=== PATIENT | male | born 1955 | race Two or more races ===

== ENCOUNTER 2018-10-02 10:37 | Emergency (ER) | payer OTHER ==
[~2018-10-02] VITALS: Ht 177.8 cm; Wt 113.0 kg
[2018-10-02] MEDS ORDERED: ONDANSETRON HCL/PF 4 MG/2 ML VIAL IVP ONE (11:00)
--- NOTE | 2018-10-02 11:03 | NUR ---
BIB FROM HOME, C/O DIZZINESS, +N/V, HEADACHE, SOB SINCE 4AM PT ALERT WITH ORIENTATION X 44 NO NOTED DEFICITS PIV PLACED LABS DRAWN WILL CONTINUE TO MONITOR.
[2018-10-02 11:09] LABS: BASOPHILS % (AUTO) 0.7 % (0.0-2.0); EOSINOPHILS % (AUTO) 1.2 % (0.0-6.0); HEMATOCRIT 42 % (39-51); HEMOGLOBIN 14.3 g/dL (13.5-17.5); LYMPHOCYTES # (AUTO) 1.4 /CMM (0.8-4.8); MEAN CORPUSCULAR HGB CONC 34 g/dl (31.0-36.0); MEAN CORPUSCULAR VOLUME 87 fL (80-96); MONOCYTES # (AUTO) 0.5 /CMM (0.1-1.30); MONOCYTES % (AUTO) 7.6 % (2.0-12.0); NEUTROPHILS % (AUTO) 70.5 % (43.0-81.0); PLATELET COUNT (AUTO) 251 /CMM (150-450); RED BLOOD CELL COUNT(AUTO) 4.87 MIL/uL (4.5-6.0); WHITE BLOOD COUNT (AUTO) 7.1 K/uL (4.3-11.0)
[2018-10-02 11:21] LABS: CALCIUM, SERUM 9.1 mg/dL (8.5-10.1); CARBON DIOXIDE 30 mmol/L (21-32); CHLORIDE 103 mmol/L (98-107); GLUCOSE 168 mg/dL (74-106); POTASSIUM 4.1 mmol/L (3.5-5.1); SODIUM SERUM 140 mmol/L (136-145); UREA NITROGEN, BLOOD 18 mg/dL (7-18)
[2018-10-02] MEDS ORDERED: ONDANSETRON HCL/PF 4 MG/2 ML VIAL ONE (11:27)
[2018-10-02] MEDS ORDERED: MECLIZINE HCL 25 MG TABLET ONE (11:27)
[2018-10-02] MEDS ORDERED: IV NS 0.9% 1,000 ML BAG IV ONE (11:30)
[2018-10-02] MEDS ORDERED: MECLIZINE HCL 12.5 MG TABLET PO ONE (11:30)
[2018-10-02 11:34] LABS: ALANINE AMINOTRANSFERASE 37 U/L (12-78); ALBUMIN 3.8 g/dL (3.4-5.0); ALKALINE PHOSPHATASE 79 U/L (46-116); ASPARTATE AMINOTRANSFERASE 15 U/L (15-37); B-TYPE NATRIURETIC PEPTIDE 33 PG/ML (0-125); BILIRUBIN,DIRECT 0.1 mg/dL (0.0-0.2); BILIRUBIN,TOTAL 0.7 mg/dL (0.2-1.0); TOTAL PROTEIN, SERUM 7.1 g/dL (6.4-8.2)
--- NOTE | 2018-10-02 11:42 | NUR ---
PT TAKEN TO CT [facility]
[2018-10-02 12:35] VITALS: BP 142/86
== END 2018-10-02 12:19 | disposition home or self-care (01) ==
LOC: ER 10:43
DX: R42 Dizziness and giddiness (principal); E66.9 Obesity, unspecified; I10 Essential (primary) hypertension; E78.5 Hyperlipidemia, unspecified; N40.0 Benign prostatic hyperplasia without lower urinary tract symptoms; E11.9 Type 2 diabetes mellitus without complications; W18.39XA Other fall on same level, initial encounter; Y93.89 Activity, other specified; Y92.009 Unspecified place in unspecified non-institutional (private) residence as the place of occurrence of the external cause; Y99.8 Other external cause status
CPT/HCPCS: 36415; 70450-TC; 71045-TC; 80048-TC; 80076-TC; 83880; 84484-TC; 85025-TC; 85730-TC; 87400; J2405; J7030; J8597

== ENCOUNTER 2019-02-06 02:29 | Emergency (ER) | payer OTHER ==
[~2019-02-06] VITALS: Ht 170.2 cm; Wt 117.9 kg
[2019-02-06 02:34] VITALS: BP 128/83
--- NOTE | 2019-02-06 02:44 | NUR ---
BIBSELF FROM HOME. AAOX4. NAD NOTED. BREATHING EVEN AND UNLABORED. AMBULATORY. C/O R SHOULDER PAIN X 2WEEK PROGRESSIVELY GETTING WORST TODAY. DESCRAIBE PAIN SHARP CONSTANT 04/05. DENIES TRAUMA. NOTED LIMITED ROM WITH PAIN WHEN MOVING. TO ER BED 11. AWAITING MD FOR EVAL.
[2019-02-06] MEDS ORDERED: TRAMADOL HCL 50 MG TABLET PO STA (03:04)
[2019-02-06] MEDS ORDERED: TRAMADOL HCL 50 MG TABLET ONE (03:09)
[2019-02-06] MEDS ORDERED: KETOROLAC TROMETHAMINE INJ 30 MG/ML VIAL IV STA (04:23)
[2019-02-06] MEDS ORDERED: KETOROLAC TROMETHAMINE INJ 60 MG/2 ML VIAL IM ONE (04:29)
--- NOTE | 2019-02-06 04:52 | NUR ---
Patient discharged to home in stable condition. Written and verbal after care instructions given. Patient verbalizes understanding of instruction.Pt ambulatory with a steady gait
== END 2019-02-06 04:53 | disposition home or self-care (01) ==
LOC: ER 02:34
DX: M25.511 Pain in right shoulder (principal); I10 Essential (primary) hypertension; E78.5 Hyperlipidemia, unspecified; N40.0 Benign prostatic hyperplasia without lower urinary tract symptoms; E11.9 Type 2 diabetes mellitus without complications
CPT/HCPCS: 73030; 96374; 99283; J1885

== ENCOUNTER 2023-05-10 23:42 | Inpatient (IN) | payer MEDICARE, OTHER ==
[~2023-05-10] VITALS: Ht 170.2 cm; Wt 105.7 kg
[2023-05-10] MEDS ORDERED: ONDANSETRON HCL/PF 4 MG/2 ML VIAL ONE (23:49)
[2023-05-11] MEDS ORDERED: ONDANSETRON HCL/PF - ER 4 MG/2 ML VIAL IV ONE
[2023-05-11] MEDS ORDERED: ONDANSETRON HCL/PF 4 MG/2 ML VIAL IV ONE
[2023-05-11] MEDS ORDERED: IV NS 0.9% 1,000 ML BAG IV ONE
[2023-05-11 00:35] LABS: BASOPHILS # (AUTO) 0.1 K/uL (0.0-0.2); BASOPHILS % (AUTO) 0.7 % (0.0-2.0); CALCIUM, SERUM 9.1 mg/dL (8.5-10.1); CARBON DIOXIDE 25 mmol/L (21-32); CHLORIDE 101 mmol/L (98-107); EOSINOPHILS # (AUTO) 0.4 K/uL (0.0-0.7); EOSINOPHILS % (AUTO) 4.4 % (0.0-6.0); GLUCOSE 186 mg/dL (74-106); HEMATOCRIT 34 % (39-51); HEMOGLOBIN 11.1 g/dL (13.5-17.5); LYMPHOCYTES # (AUTO) 0.4 K/uL (0.8-4.8); LYMPHOCYTES % (AUTO) 4.8 % (20.0-44.0); MEAN CORPUSCULAR HEMOGLOBIN 26 PG (26.0-33.0); MEAN CORPUSCULAR HGB CONC 33 g/dl (31.0-36.0); MEAN CORPUSCULAR VOLUME 79 fL (80-96); MONOCYTES # (AUTO) 0.8 K/uL (0.1-1.30); MONOCYTES % (AUTO) 9.3 % (2.0-12.0); NEUTROPHILS # (AUTO) 6.6 K/uL (1.8-8.9); NEUTROPHILS % (AUTO) 80.8 % (43.0-81.0); PLATELET COUNT (AUTO) 168 K/uL (150-450); POTASSIUM 4.3 mmol/L (3.5-5.1); RED BLOOD CELL COUNT(AUTO) 4.28 MIL/uL (4.5-6.0); SODIUM SERUM 137 mmol/L (136-145); UREA NITROGEN, BLOOD 16 mg/dL (7-18); WHITE BLOOD COUNT (AUTO) 8.1 K/uL (4.3-11.0)
[2023-05-11 00:40] LABS: ALANINE AMINOTRANSFERASE 41 U/L (12-78); ALBUMIN 3.3 g/dL (3.4-5.0); ALKALINE PHOSPHATASE 61 U/L (46-116); ASPARTATE AMINOTRANSFERASE 25 U/L (15-37); BILIRUBIN,DIRECT 0.2 mg/dL (0.0-0.2); BILIRUBIN,TOTAL 0.7 mg/dL (0.2-1.0); TOTAL PROTEIN, SERUM 7.1 g/dL (6.4-8.2)
[2023-05-11] MEDS ORDERED: MECL-159 PO (00:42)
[2023-05-11] MEDS ORDERED: FINA5TAB3 PO (00:42)
[2023-05-11] MEDS ORDERED: DIPH50CA4 PO (00:42)
[2023-05-11] MEDS ORDERED: BECL10.6 INH (00:42)
[2023-05-11] MEDS ORDERED: METF-440 PO (00:42)
[2023-05-11] MEDS ORDERED: TAMS-12 PO (00:42)
[2023-05-11] MEDS ORDERED: FEXO-65 PO (00:42)
[2023-05-11] MEDS ORDERED: DAPA10TA PO (00:42)
[2023-05-11] MEDS ORDERED: ASPI-1420 PO (00:42)
[2023-05-11] MEDS ORDERED: CARV12.52 PO (00:42)
[2023-05-11] MEDS ORDERED: BACL10TA PO (00:42)
[2023-05-11] MEDS ORDERED: METO-357 PO (00:42)
[2023-05-11] MEDS ORDERED: VIBEGRON PO (00:42)
[2023-05-11] MEDS ORDERED: ONDA4TAB5 PO (00:42)
[2023-05-11] MEDS ORDERED: DICL75TA5 PO (00:42)
[2023-05-11] MEDS ORDERED: ROSU20TA2 PO (00:42)
[2023-05-11] MEDS ORDERED: GLYB5TAB7 PO (00:42)
[2023-05-11] MEDS ORDERED: LORA-258 PO (00:42)
[2023-05-11] MEDS ORDERED: INSU100I26 SQ (00:42)
[2023-05-11 00:43] LABS: LACTIC ACID 1.5 mmol/L (0.4-2.0)
[2023-05-11 00:54] LABS: INR 0.98 (0.91-1.10); PARTIAL THROMBOPLASTIN TIME 34.3 SEC (24.3-34.3); PROTHROMBIN TIME 10.4 SECS (9.2-11.1)
[2023-05-11] MEDS ORDERED: METOCLOPRAMIDE HCL 10 MG/2 ML VIAL ONE (01:28)
[2023-05-11] MEDS ORDERED: METOCLOPRAMIDE HCL 10 MG/2 ML VIAL IV ONE (01:30)
[2023-05-11 01:51] LABS: APPEARANCE,URINE CLEAR (CLEAR); BILIRUBIN,URINE NEGATIVE (NEGATIVE); BLOOD, URINE NEGATIVE Ery/uL (NEGATIVE); COLOR,URINE YELLOW (YELLOW); KETONES,URINE NEGATIVE (NEGATIVE); LEUKOCYTE ESTERASE ,URINE NEGATIVE (NEGATIVE); NITRITE, URINE NEGATIVE (NEGATIVE); PROTEIN,URINE TRACE mg/dl (NEGATIVE); UGLUCOSE 3+ mg/dL (NEGATIVE)
[2023-05-11] MEDS ORDERED: FUROSEMIDE 40 MG/4 ML VIAL IV ONE (02:00)
[2023-05-11] MEDS ORDERED: FAMOTIDINE/PF INJ 20 MG/2 ML VIAL IV ONE ×2 (02:00)
[2023-05-11 02:03] LABS: ADD URINE CULTURE NO; BACTERIA,URINE None seen /HPF (None Seen); MUCUS,URINE Few /LPF (None Seen); RBC,URINE NONE SEEN /HPF (0-2); SQUAMOUS EPITHELIAL CELL,UR None Seen /HPF (None Seen); WBC,URINE NONE SEEN /HPF (0-3)
[2023-05-11] MEDS ORDERED: MAGNESIUM HYDROXIDE 30 ML UDC PO PRN (03:00)
[2023-05-11] MEDS ORDERED: MAG HYDROX/AL HYDROX/SIMETH 30 ML UDC PO PRN (03:00)
[2023-05-11] MEDS ORDERED: ONDANSETRON HCL/PF 4 MG/2 ML VIAL IVP PRN (03:00)
[2023-05-11] MEDS ORDERED: Z GUARD REMEDY 4 OZ OINT TP PRN (03:00)
[2023-05-11] MEDS ORDERED: DEXTROSE 50%-WATER 50 ML DISP.SYRIN IV PRN (03:00)
[2023-05-11] MEDS ORDERED: ZOLPIDEM TARTRATE 5 MG TABLET PO PRN (03:00)
[2023-05-11 05:14] LABS: BASOPHILS % (AUTO) 0.4 % (0.0-2.0); EOSINOPHILS # (AUTO) 0.1 K/uL (0.0-0.7); EOSINOPHILS % (AUTO) 0.9 % (0.0-6.0); HEMATOCRIT 34 % (39-51); HEMOGLOBIN 11.4 g/dL (13.5-17.5); LYMPHOCYTES # (AUTO) 0.2 K/uL (0.8-4.8); LYMPHOCYTES % (AUTO) 3.2 % (20.0-44.0); MEAN CORPUSCULAR HEMOGLOBIN 26 PG (26.0-33.0); MEAN CORPUSCULAR HGB CONC 33 g/dl (31.0-36.0); MEAN CORPUSCULAR VOLUME 78 fL (80-96); MONOCYTES # (AUTO) 0.4 K/uL (0.1-1.30); MONOCYTES % (AUTO) 6.4 % (2.0-12.0); NEUTROPHILS # (AUTO) 5.8 K/uL (1.8-8.9); NEUTROPHILS % (AUTO) 89.1 % (43.0-81.0); PLATELET COUNT (AUTO) 156 K/uL (150-450); RED BLOOD CELL COUNT(AUTO) 4.38 MIL/uL (4.5-6.0); RED CELL DISTRIBUTION WIDTH 17.8 % (11.5-15.0); WHITE BLOOD COUNT (AUTO) 6.5 K/uL (4.3-11.0)
[2023-05-11 05:26] LABS: CALCIUM, SERUM 9.3 mg/dL (8.5-10.1); POTASSIUM 4.5 mmol/L (3.5-5.1)
[2023-05-11 05:40] LABS: MAGNESIUM 1.9 mg/dL (1.8-2.4)
[2023-05-11] MEDS ORDERED: GLYB1TAB41 PO (07:59)
[2023-05-11] MEDS ORDERED: PANT40TA2 PO (07:59)
[2023-05-11] MEDS ORDERED: IBUP-1957 PO (07:59)
[2023-05-11] MEDS: BLOOD SUGAR DIAGNOSTIC 1 EACH STRIP IN SCH ×4 (08:36→21:50)
[2023-05-11] MEDS: FUROSEMIDE 40 MG/4 ML VIAL IV SCH ×2 (08:56→20:40)
[2023-05-11] MEDS: ENOXAPARIN SODIUM 40 MG/0.4 ML DISP.SYRIN SQ SCH (08:57)
[2023-05-11] MEDS ORDERED: PANTOPRAZOLE 40 MG VIAL IV SCH (09:00)
[2023-05-11] MEDS ORDERED: VIBEGRON XX SCH (10:00)
[2023-05-11] MEDS ORDERED: BACLOFEN (10 MG) 10 MG TABLET PO SCH (10:00)
[2023-05-11] MEDS: PANTOPRAZOLE 40 MG TABLET.DR PO SCH (10:00)
[2023-05-11] MEDS ORDERED: MECLIZINE HCL 12.5 MG TABLET PO PRN (11:30)
[2023-05-11 12:00] VITALS: BP 142/81; TEMP 98.2; O2SAT 99
[2023-05-11] MEDS: CEFTRIAXONE 1 G in IV D5W 50 ML IV SCH (12:13)
[2023-05-11] MEDS: INSULIN REGULAR, HUMAN 100 UNIT/ML 3 ML VIAL SQ PRN ×3 (14:45→21:52)
[2023-05-11] MEDS: MECLIZINE HCL 25 MG TABLET PO PRN (15:32)
[2023-05-11 16:00] VITALS: BP 143/75; TEMP 98.6; O2SAT 95
[2023-05-11 17:03] VITALS: BP 142/81; TEMP 98.2; O2SAT 99
[2023-05-11 20:00] VITALS: BP_SYST 122; BP_SYST 133; BP_SYST 140; BP_DIAS 77; BP_DIAS 78; BP_DIAS 82; TEMP 97.7; O2SAT 97
[2023-05-11] MEDS: ACETAMINOPHEN 325 MG TABLET PO PRN (21:50)
[2023-05-12] VITALS (9 sets, daily range): BP systolic 124–144; BP diastolic 69–86; TEMP 97.9–99; O2SAT 96–97
[2023-05-12] MEDS: BLOOD SUGAR DIAGNOSTIC 1 EACH STRIP IN SCH ×4 (06:34→22:04)
[2023-05-12] MEDS: INSULIN REGULAR, HUMAN 100 UNIT/ML 3 ML VIAL SQ PRN ×4 (06:35→22:04)
[2023-05-12] MEDS: ACETAMINOPHEN 325 MG TABLET PO PRN ×2 (06:41→11:37)
[2023-05-12 06:48] LABS: BASOPHILS % (AUTO) 0.6 % (0.0-2.0); EOSINOPHILS # (AUTO) 0.3 K/uL (0.0-0.7); EOSINOPHILS % (AUTO) 4.4 % (0.0-6.0); HEMATOCRIT 35 % (39-51); HEMOGLOBIN 11.6 g/dL (13.5-17.5); LYMPHOCYTES # (AUTO) 0.2 K/uL (0.8-4.8); LYMPHOCYTES % (AUTO) 2.3 % (20.0-44.0); MEAN CORPUSCULAR HEMOGLOBIN 26 PG (26.0-33.0); MEAN CORPUSCULAR HGB CONC 33 g/dl (31.0-36.0); MEAN CORPUSCULAR VOLUME 78 fL (80-96); MONOCYTES # (AUTO) 0.8 K/uL (0.1-1.30); NEUTROPHILS # (AUTO) 5.8 K/uL (1.8-8.9); NEUTROPHILS % (AUTO) 81.7 % (43.0-81.0); PLATELET COUNT (AUTO) 176 K/uL (150-450); RED BLOOD CELL COUNT(AUTO) 4.49 MIL/uL (4.5-6.0); WHITE BLOOD COUNT (AUTO) 7.1 K/uL (4.3-11.0)
[2023-05-12 07:02] LABS: CALCIUM, SERUM 9.3 mg/dL (8.5-10.1); CREATININE 0.9 mg/dL (0.6-1.3); MAGNESIUM 2.2 mg/dL (1.8-2.4); PHOSPHORUS 4.4 mg/dL (2.5-4.9); POTASSIUM 4.1 mmol/L (3.5-5.1)
[2023-05-12 09:25] LABS: ABG BASE EXCESS -1.2 mmol/L; ABG OXYGEN SATURATION 88.3 % (92.0-98.5); ABG PCO2 42.4 mmHg (35.0-45.0); ABG PH 7.372 (7.350-7.450); ABG PO2 57.5 mmHg (75.0-100.0); ABG TOTAL HEMOGLOBIN 12.6 G/dL (13.5-18.0); COHb 0.9 % (0.5-1.5); MetHb 0.4 % (0.0-1.5); O2Hb 87.2 % (94.0-97.0); SITE, ABG Right Radial; VENT MODE, BG Nasal Cannula
[2023-05-12] MEDS: ENOXAPARIN SODIUM 40 MG/0.4 ML DISP.SYRIN SQ SCH (09:45)
[2023-05-12] MEDS: PANTOPRAZOLE 40 MG TABLET.DR PO SCH (09:47)
[2023-05-12] MEDS: ATORVASTATIN 40 MG TABLET PO SCH (09:47)
[2023-05-12] MEDS: ASPIRIN EC 81 MG TABLET.DR PO SCH (09:47)
[2023-05-12] MEDS: METOPROLOL SUCCINATE 50 MG TAB.SR.24H PO SCH (09:47)
[2023-05-12] MEDS: TAMSULOSIN 0.4 MG CAP.SR.24H PO SCH (09:48)
[2023-05-12] MEDS: cetrizine 10 MG TABLET PO SCH (09:48)
[2023-05-12] MEDS: FINASTERIDE (5 MG) 5 MG TABLET PO SCH (09:48)
[2023-05-12] MEDS: DAPAGLIFLOZIN PROPANEDIOL 5 MG TABLET PO SCH (09:54)
[2023-05-12] MEDS: MECLIZINE HCL 25 MG TABLET PO PRN (10:15)
[2023-05-12] MEDS: CEFTRIAXONE 1 G in IV D5W 50 ML IV SCH (10:50)
[2023-05-13] VITALS (9 sets, daily range): BP systolic 113–135; BP diastolic 67–84; TEMP 97.7–99.5; O2SAT 93–100
[2023-05-13] MEDS: INSULIN REGULAR, HUMAN 100 UNIT/ML 3 ML VIAL SQ PRN ×4 (06:41→22:47)
[2023-05-13] MEDS: BLOOD SUGAR DIAGNOSTIC 1 EACH STRIP IN SCH ×4 (06:43→22:48)
[2023-05-13 06:48] LABS: BASOPHILS % (AUTO) 0.6 % (0.0-2.0); EOSINOPHILS # (AUTO) 0.5 K/uL (0.0-0.7); EOSINOPHILS % (AUTO) 7.9 % (0.0-6.0); HEMATOCRIT 35 % (39-51); HEMOGLOBIN 11.5 g/dL (13.5-17.5); LYMPHOCYTES # (AUTO) 0.3 K/uL (0.8-4.8); LYMPHOCYTES % (AUTO) 4.4 % (20.0-44.0); MEAN CORPUSCULAR HEMOGLOBIN 26 PG (26.0-33.0); MEAN CORPUSCULAR HGB CONC 33 g/dl (31.0-36.0); MEAN CORPUSCULAR VOLUME 79 fL (80-96); MONOCYTES # (AUTO) 0.8 K/uL (0.1-1.30); MONOCYTES % (AUTO) 11.6 % (2.0-12.0); NEUTROPHILS # (AUTO) 4.9 K/uL (1.8-8.9); NEUTROPHILS % (AUTO) 75.5 % (43.0-81.0); PLATELET COUNT (AUTO) 192 K/uL (150-450); RED BLOOD CELL COUNT(AUTO) 4.41 MIL/uL (4.5-6.0); RED CELL DISTRIBUTION WIDTH 17.8 % (11.5-15.0); WHITE BLOOD COUNT (AUTO) 6.5 K/uL (4.3-11.0)
[2023-05-13 07:02] LABS: CALCIUM, SERUM 9.1 mg/dL (8.5-10.1); CREATININE 0.9 mg/dL (0.6-1.3); MAGNESIUM 2.3 mg/dL (1.8-2.4); PHOSPHORUS 4.1 mg/dL (2.5-4.9); POTASSIUM 4.4 mmol/L (3.5-5.1)
[2023-05-13] MEDS: ACETAMINOPHEN 325 MG TABLET PO PRN (10:33)
[2023-05-13] MEDS: MECLIZINE HCL 25 MG TABLET PO PRN (10:33)
[2023-05-13] MEDS: POTASSIUM CHLORIDE 20 MEQ TAB.PRT.SR PO SCH ×3 (10:34→15:07)
[2023-05-13] MEDS: FUROSEMIDE 40 MG/4 ML VIAL IV SCH ×3 (10:34→19:07)
[2023-05-13] MEDS: FINASTERIDE (5 MG) 5 MG TABLET PO SCH (11:11)
[2023-05-13] MEDS: ENOXAPARIN SODIUM 40 MG/0.4 ML DISP.SYRIN SQ SCH (11:11)
[2023-05-13] MEDS: PANTOPRAZOLE 40 MG TABLET.DR PO SCH (11:12)
[2023-05-13] MEDS: ATORVASTATIN 40 MG TABLET PO SCH (11:12)
[2023-05-13] MEDS: cetrizine 10 MG TABLET PO SCH (11:12)
[2023-05-13] MEDS: ASPIRIN EC 81 MG TABLET.DR PO SCH (11:12)
[2023-05-13] MEDS: TAMSULOSIN 0.4 MG CAP.SR.24H PO SCH (11:12)
[2023-05-13] MEDS: DAPAGLIFLOZIN PROPANEDIOL 5 MG TABLET PO SCH (11:13)
[2023-05-13] MEDS: CEFTRIAXONE 1 G in IV D5W 50 ML IV SCH (11:21)
[2023-05-13] MEDS ORDERED: DEXTROSE 50%-WATER 50 ML DISP.SYRIN IV PRN (11:30)
[2023-05-13] MEDS ORDERED: *INSULIN REGULAR(HUMULIN R)HUM 100 UNIT/ML VIAL SQ PRN (11:30)
[2023-05-13] MEDS: METOPROLOL SUCCINATE 50 MG TAB.SR.24H PO SCH (11:48)
[2023-05-14] VITALS: BP 110/70; TEMP 98.1; O2SAT 96
[2023-05-14] MEDS: INSULIN REGULAR, HUMAN 100 UNIT/ML 3 ML VIAL SQ PRN (06:40)
[2023-05-14 06:44] LABS: BASOPHILS % (AUTO) 0.6 % (0.0-2.0); EOSINOPHILS # (AUTO) 0.5 K/uL (0.0-0.7); EOSINOPHILS % (AUTO) 8.8 % (0.0-6.0); HEMATOCRIT 37 % (39-51); HEMOGLOBIN 12.2 g/dL (13.5-17.5); LYMPHOCYTES # (AUTO) 0.3 K/uL (0.8-4.8); LYMPHOCYTES % (AUTO) 5.8 % (20.0-44.0); MEAN CORPUSCULAR HEMOGLOBIN 26 PG (26.0-33.0); MEAN CORPUSCULAR HGB CONC 33 g/dl (31.0-36.0); MEAN CORPUSCULAR VOLUME 78 fL (80-96); MONOCYTES # (AUTO) 0.7 K/uL (0.1-1.30); MONOCYTES % (AUTO) 12.4 % (2.0-12.0); NEUTROPHILS # (AUTO) 4.3 K/uL (1.8-8.9); NEUTROPHILS % (AUTO) 72.4 % (43.0-81.0); PLATELET COUNT (AUTO) 200 K/uL (150-450); RED BLOOD CELL COUNT(AUTO) 4.71 MIL/uL (4.5-6.0); RED CELL DISTRIBUTION WIDTH 17.9 % (11.5-15.0)
[2023-05-14 06:49] LABS: ALBUMIN 3.4 g/dL (3.4-5.0); BILIRUBIN,TOTAL 0.9 mg/dL (0.2-1.0); CALCIUM, SERUM 9.7 mg/dL (8.5-10.1); CREATININE 0.9 mg/dL (0.6-1.3); MAGNESIUM 2.3 mg/dL (1.8-2.4); POTASSIUM 4.3 mmol/L (3.5-5.1); TOTAL PROTEIN, SERUM 7.5 g/dL (6.4-8.2)
[2023-05-14] MEDS: BLOOD SUGAR DIAGNOSTIC 1 EACH STRIP IN SCH ×2 (07:45→12:58)
[2023-05-14 08:28] VITALS: BP 121/78; TEMP 98.4; O2SAT 98
[2023-05-14] MEDS: MECLIZINE HCL 25 MG TABLET PO PRN (08:50)
[2023-05-14] MEDS: TAMSULOSIN 0.4 MG CAP.SR.24H PO SCH (08:52)
[2023-05-14] MEDS: ASPIRIN EC 81 MG TABLET.DR PO SCH (08:52)
[2023-05-14] MEDS: FINASTERIDE (5 MG) 5 MG TABLET PO SCH (08:52)
[2023-05-14] MEDS: METOPROLOL SUCCINATE 50 MG TAB.SR.24H PO SCH (08:52)
[2023-05-14] MEDS: ATORVASTATIN 40 MG TABLET PO SCH (08:53)
[2023-05-14] MEDS: cetrizine 10 MG TABLET PO SCH (08:53)
[2023-05-14] MEDS: ENOXAPARIN SODIUM 40 MG/0.4 ML DISP.SYRIN SQ SCH (08:56)
[2023-05-14] MEDS: DAPAGLIFLOZIN PROPANEDIOL 5 MG TABLET PO SCH (08:59)
[2023-05-14] MEDS: PANTOPRAZOLE 40 MG TABLET.DR PO SCH (09:03)
[2023-05-14] MEDS ORDERED: SPIR25TA6 PO (11:04)
[2023-05-14 11:48] VITALS: BP 128/77; TEMP 97.5; O2SAT 96
[2023-05-14] MEDS: CEFTRIAXONE 1 G in IV D5W 50 ML IV SCH (12:49)
== END 2023-05-14 15:30 | disposition home health service (06) | DRG 291 ==
LOC: ER 23:44 → TRANSITION 05-11 04:54 → TELE 05-11 05:50
PROVIDERS: ADMIT Nurse Practitioner Acute Care; ATTEND Nurse Practitioner Acute Care
DX: I11.0 Hypertensive heart disease with heart failure (principal); I50.33 Acute on chronic diastolic (congestive) heart failure; J96.91 Respiratory failure, unspecified with hypoxia; J15.69 Pneumonia due to other Gram-negative bacteria; C85.90 Non-Hodgkin lymphoma, unspecified, unspecified site; H81.10 Benign paroxysmal vertigo, unspecified ear; E11.9 Type 2 diabetes mellitus without complications; E66.01 Morbid (severe) obesity due to excess calories; N32.81 Overactive bladder; Z79.84 Long term (current) use of oral hypoglycemic drugs; Z79.51 Long term (current) use of inhaled steroids; Z20.822 Contact with and (suspected) exposure to COVID-19; Z79.899 Other long term (current) drug therapy; N40.0 Benign prostatic hyperplasia without lower urinary tract symptoms; H55.00 Unspecified nystagmus; Z68.36 Body mass index [BMI] 36.0-36.9, adult; I35.2 Nonrheumatic aortic (valve) stenosis with insufficiency
CPT/HCPCS: 36415; 36600; 70450-TC; 71045-TC; 80048-TC; 80053-TC; 80061-TC; 80076-TC; 81001; 82803-TC; 82962-TC; 83605-TC; 83735-TC; 83880; 84100-TC; 84484-TC; 85025-TC; 85730-TC; 93307-TC; 93970-TC; 97112-TC; 97116-TC; 97530-TC; A4223; A6403; C9113; C9803; G0378; J0696; J1650; J1815; J1940; J2405; J2765; J3490; J7030; J7050; J7060; J8597

== ENCOUNTER 2024-08-30 10:24 | Emergency (ER) | payer MEDICARE, OTHER ==
[~2024-08-30] VITALS: Ht 170.2 cm; Wt 112.0 kg
[~2024-08-30 10:24] MED LIST: ASPI-1420 PO; BACL10TA PO; BECL10.6 INH; CARV12.52 PO; DAPA10TA PO; DICL75TA5 PO; DIPH50CA4 PO; FEXO-65 PO; FINA5TAB3 PO; GLYB1TAB41 PO; IBUP-1957 PO; INSU100I26 SQ; LORA-258 PO; MECL-159 PO; METF-440 PO; METO-357 PO; ONDA4TAB5 PO; PANT40TA2 PO; ROSU20TA2 PO; SPIR25TA6 PO; TAMS-12 PO; VIBEGRON PO
[2024-08-30] MEDS ORDERED: LIDOCAINE 5% (PATCH) 1 EA PATCH TP ONE (11:16)
[2024-08-30] MEDS ORDERED: KETOROLAC TROMETHAMINE 15 MG/ML VIAL ONE (11:16)
[2024-08-30] MEDS: LIDOCAINE 5% (PATCH) 1 EA PATCH TP STA (11:24)
[2024-08-30] MEDS: KETOROLAC TROMETHAMINE 15 MG/ML VIAL IM ONE (11:25)
[2024-08-30] MEDS ORDERED: LIDO30AD10 TP (11:56)
[2024-08-30] MEDS ORDERED: CYCL5TAB PO (11:56)
[2024-08-30] MEDS ORDERED: METH4TAB17 PO (11:56)
[2024-08-30] MEDS ORDERED: IBUP-1955 PO (11:56)
[2024-08-30 12:06] VITALS: BP 130/85; TEMP 98; O2SAT 98
== END 2024-08-30 12:07 | disposition home or self-care (01) ==
LOC: ER 10:32
DX: M54.12 Radiculopathy, cervical region (principal); E11.9 Type 2 diabetes mellitus without complications; I10 Essential (primary) hypertension; Z79.4 Long term (current) use of insulin; Z79.51 Long term (current) use of inhaled steroids; Z79.82 Long term (current) use of aspirin; Z79.84 Long term (current) use of oral hypoglycemic drugs; Z79.899 Other long term (current) drug therapy
CPT/HCPCS: 99283; 96372; J1885